=== PATIENT | male | born 1970 | race Caucasian/White ===

== ENCOUNTER 2016-07-16 20:42 | Emergency (ER) | payer OTHER ==
[~2016-07-16] VITALS: Ht 188 cm; Wt 123.0 kg
[2016-07-16 21:12] LABS: HEMATOCRIT 40.6 % (38.0-50.0); MCH 28.3 PG (29.0-34.0); MCHC 35.5 G/DL (30.0-36.0); MCV 79.9 FL (86-99); MEAN PLAT.VOLUME 10.6 uM^3 (9.0-12.4); PLATELET COUNT 240 K/uL (156-360); RBC DIS.WIDTH-CV 12.9 % (11.8-14.6); RBC DIS.WIDTH-SD 37.2 % (39-53); RED BLOOD COUNT 5.08 M/uL (4.00-5.50); WHITE BLOOD COUNT 16.8 K/uL (4.1-10.2)
[2016-07-16 21:31] LABS: CHLORIDE 105 mEq/L (99-109); POTASSIUM 4.4 mEq/L (3.7-5.4); SODIUM 138 mEq/L (136-147)
[2016-07-16 21:34] LABS: GLUCOSE 221 mg/dL (70-99)
[2016-07-16 21:35] LABS: ANION GAP 13 MEQ/L (2-14)
[2016-07-16 21:36] LABS: TOTAL BILIRUBIN 0.6 mg/dL (0.0-1.0)
[2016-07-16 21:37] LABS: ALKALINE PHOSPHATASE 54 IU/L (3-129)
[2016-07-16 21:38] LABS: UREA NITROGEN (BUN) 26 mg/dL (9-23)
[2016-07-16 21:44] LABS: GFR ESTIMATE (CALCULATED) 44 mL/min/
[2016-07-16 23:13] LABS: LIPASE 31 U/L (1.0-51.0)
[2016-07-16 23:27] LABS: ADD MIUA? YES; BILIRUBIN NEGATIVE; BLOOD MODERATE; COLOR YELLOW ((YELLOW)); GLUCOSE (STRIP) 50; KETONES 5; LEUKOCYTES NEGATIVE; NITRITE NEGATIVE; PROTEIN (STRIP) 100; SPECIFIC GRAVITY 1.027 (1.000-1.030); UROBILINOGEN 0.2 MG/DL (0.2-1.0)
[2016-07-16 23:39] LABS: BACTERIA NONE SEEN /HPF; EPITHELIAL CELLS NONE SEEN /HPF; HYALINE CASTS 0-5 /LPF; MUCUS TRACE /LPF; RED BLOOD CELLS 0-5 /HPF (0-5); UCUL ADDED? NO; WHITE BLOOD CELLS 0-5 /HPF (0-5)
[2016-07-17] MEDS ORDERED: FLOMAX0.4 MG PO (00:40)
[2016-07-17] MEDS ORDERED: NORCO 7.5/321 TABLET PO (00:40)
[2016-07-17] MEDS ORDERED: MOTRIN800 MG PO (00:40)
[2016-07-17] MEDS ORDERED: ZOFRAN ODT4 MG PO (00:40)
[2016-07-17 00:57] VITALS: BP 139/63
== END 2016-07-17 01:09 | disposition home or self-care (01) ==
LOC: EME 20:42
DX: N13.2 Hydronephrosis with renal and ureteral calculous obstruction (principal); E11.65 Type 2 diabetes mellitus with hyperglycemia; N28.9 Disorder of kidney and ureter, unspecified
CPT/HCPCS: 74176; 80053; 81003; 83690; 85027; 87086; 99281; 99285; J1885; J3010

== ENCOUNTER 2017-11-04 17:36 | Inpatient (IN) | payer OTHER ==
[~2017-11-04] VITALS: Ht 190.5 cm; Wt 118.1 kg
[2017-11-04] VITALS (7 sets, daily range): BP systolic 129–186; BP diastolic 61–114
[~2017-11-04 17:36] MED LIST: FLOMAX0.4 MG PO; MOTRIN800 MG PO; NORCO 7.5/321 TABLET PO; ZOFRAN ODT4 MG PO
[2017-11-04 17:49] LABS: BASOPHIL COUNT 0.1 K/uL (0-0.1); EOSINOPHIL (%) 4.5 % (0-5); EOSINOPHIL COUNT 0.5 K/uL (0-0.3); HEMATOCRIT 40.1 % (38.0-50.0); HEMOGLOBIN 14.1 G/DL (12.5-16.6); IMMATURE GRANULOCYTE (%) 1.3 % (0.0-0.7); LYMPHOCYTE (%) 25.3 % (15-42); MCHC 35.2 G/DL (30.0-36.0); MCV 82.3 FL (86-99); MONOCYTE (%) 6.7 % (3-12); MONOCYTE COUNT 0.8 K/uL (0-0.8); NEUTROPHIL (%) 61.2 % (45-76); NEUTROPHIL COUNT 7.3 K/uL (1.8-6.4); PLATELET COUNT 219 K/uL (156-360); RBC DIS.WIDTH-CV 13.2 % (11.8-14.6); RBC DIS.WIDTH-SD 39.5 % (39-53); RED BLOOD COUNT 4.87 M/uL (4.00-5.50); WHITE BLOOD COUNT 11.9 K/uL (4.1-10.2)
[2017-11-04 18:14] LABS: AMYLASE 60 IU/L (1-118); CHLORIDE 105 mEq/L (99-109)
[2017-11-04 18:15] LABS: POTASSIUM 3.7 mEq/L (3.7-5.4); SODIUM 140 mEq/L (136-147)
[2017-11-04 18:16] LABS: GLUCOSE 134 mg/dL (70-99)
[2017-11-04 18:19] LABS: SERUM ETHYL ALCOHOL < 10 mg/dL
[2017-11-04 18:20] LABS: CREATININE 1.4 mg/dL (0.6-1.3); GFR ESTIMATE (CALCULATED) 58 mL/min/ (58.99-99999)
[2017-11-04 18:21] LABS: UREA NITROGEN (BUN) 20 mg/dL (9-23)
[2017-11-04 18:23] LABS: LIPASE 50 U/L (1.0-51.0)
[2017-11-04] MEDS ORDERED: PRAVASTATIN SOD40 MG PO (18:30)
[2017-11-04] MEDS ORDERED: ADVIL200 MG PO (18:30)
[2017-11-04] MEDS ORDERED: LISINOPRIL5 MG PO (18:31)
[2017-11-04] MEDS ORDERED: METFORMIN HCL1000 MG PO (18:31)
[2017-11-04 19:46] LABS: PTT 25.2 SEC (25-37)
[2017-11-04 19:54] LABS: TROP-I INTERPRETATION NEGATIVE; TROPONIN-I < 0.01 ng/mL (0.0-0.30)
[2017-11-04 21:01] LABS: APPEARANCE CLEAR ((CLEAR)); BILIRUBIN NEGATIVE; BLOOD NEGATIVE; COLOR STRAW ((YELLOW)); GLUCOSE (STRIP) NEGATIVE; KETONES NEGATIVE; LEUKOCYTES NEGATIVE; NITRITE NEGATIVE; PROTEIN (STRIP) 30; SPECIFIC GRAVITY 1.023 (1.000-1.030); UCUL ADDED? NO; UROBILINOGEN 0.2 MG/DL (0.2-1.0)
[2017-11-04 21:34] LABS: AMPHETAMINE NEGATIVE (500 ng/mL); BARBITURATES NEGATIVE (200 ng/mL); BENZODIAZEPINES NEGATIVE (150 ng/mL); BUPRENORPHINE NEGATIVE (10 ng/mL); COCAINE NEGATIVE (150 ng/mL); METHADONE NEGATIVE (200 ng/mL); METHAMPHETAMINE NEGATIVE (500 ng/mL); OPIATES (MORPHINE) NEGATIVE (100 ng/mL); OXYCODONE NEGATIVE (100 ng/mL); PHENCYCLIDINE NEGATIVE (25 ng/mL); PROPOXYPHENE NEGATIVE (300 ng/mL); THC CANNABINOIDS NEGATIVE (50 ng/mL); TRICYCLIC ANTIDEPRESSANTS NEGATIVE (300 ng/mL)
[2017-11-04 23:27] LABS: HDL CHOLESTEROL 26 MG/DL (Desirable>=40); LDL CHOLESTEROL 85 mg/dL (Desirable<100); NON-HDL CHOLESTEROL 116 mg/dL (Desirable<160); TOTAL CHOLESTEROL 142 mg/dL (Desirable<200); TRIGLYCERIDES 157 MG/DL (Normal: <150)
[2017-11-05] VITALS (25 sets, daily range): BP systolic 123–167; BP diastolic 60–96
[2017-11-05 05:14] LABS: HEMATOCRIT 36.5 % (38.0-50.0); HEMOGLOBIN 12.8 G/DL (12.5-16.6); MCH 28.7 PG (29.0-34.0); MCHC 35.1 G/DL (30.0-36.0); MCV 81.8 FL (86-99); PLATELET COUNT 203 K/uL (156-360); RBC DIS.WIDTH-CV 13.2 % (11.8-14.6); RBC DIS.WIDTH-SD 39.1 % (39-53); RED BLOOD COUNT 4.46 M/uL (4.00-5.50); WHITE BLOOD COUNT 10.8 K/uL (4.1-10.2)
[2017-11-05 05:40] LABS: CHLORIDE 105 MEQ/L (99-109); CREATININE 1.2 MG/DL (0.6-1.3); GFR ESTIMATE (CALCULATED) > 59 mL/min/ (58.99-99999); GLUCOSE 182 mg/dL (70-99); SODIUM 138 MEQ/L (136-147); UREA NITROGEN (BUN) 16 mg/dL (9-23)
[2017-11-05 10:44] LABS: HEMOGLOBIN A1c (GLYCOHEMOGLOB) 7.1 % (Below 5.7)
[2017-11-06] VITALS (8 sets, daily range): BP systolic 108–163; BP diastolic 70–84
[2017-11-07 00:24] VITALS: BP 134/66
[2017-11-07 03:59] VITALS: BP 139/81
[2017-11-07 04:00] VITALS: BP 120/65
[2017-11-07 07:11] VITALS: BP 136/75
[2017-11-07] MEDS ORDERED: LOPRESSOR25 MG PO (10:44)
[2017-11-07] MEDS ORDERED: ASPIRIN EC325 MG PO (10:45)
[2017-11-07] MEDS ORDERED: ATORVASTATIN CA40 MG PO (10:50)
[2017-11-08 05:30] LABS: LUPA PHOSPHOLIPID NEUTRALIZ Positive (Negative)
[2017-11-11 15:35] LABS: ACTIVATED PROTEIN C RESIST+ 4.6 ratio (>=2.1); DRVVT Mixing Study Interp Positive (()); FACTOR VIII ACTIVITY+ 226 % (50-180); PROTEIN C FUNCTIONAL ACTIVITY+ 192 % (70-180); PTT-LA 44 sec (<=40); Protein S, Free 98 % normal (57-171); Thrombosis Consult Level Limited (()); dRVVT Screen 78 sec (<=45)
[2017-11-11 19:06] LABS: ANTITHROMBIN III ACTIVITY+ 121 % activi (80-120)
== END 2017-11-07 12:22 | disposition home or self-care (01) | DRG 63 ==
LOC: EME 17:36 → EDOF 20:07 → 4WEST 20:07 → ENRESERV 20:09 → 4WEST 21:24 → ENRESERV 11-06 08:22 → CANRESERV 11-06 08:22 → ENRESERV 11-06 08:30 → 5SOUTH 11-06 10:45
PROVIDERS: Emergency Medicine; Hospitalist; Specialist; Surgery
DX: I63.512 Cerebral infarction due to unspecified occlusion or stenosis of left middle cerebral artery (principal); R47.01 Aphasia; R47.02 Dysphasia; R20.0 Anesthesia of skin; E11.65 Type 2 diabetes mellitus with hyperglycemia; N28.9 Disorder of kidney and ureter, unspecified; I10 Essential (primary) hypertension; E78.5 Hyperlipidemia, unspecified; Z86.73 Personal history of transient ischemic attack (TIA), and cerebral infarction without residual deficits
CPT/HCPCS: 70450; 70496; 70498; 70551; 80048; 80061; 81003; 81240 90; 82150; 82948; 83036; 83090 90; 83690; 84484; 85025; 85027; 85240 90; 85300 90; 85303 90; 85305 90; 85306 90; 85307 90; 85610; 85613 90; 85651; 85730; 85730 90; 86038; 86146 90; 86147 90; 86850; 86900; 86901; 87641; 92507 GN; 92523 GN; 92610 GN; 93005; 97530 GO; 99281; 99285; G0480; J1815; J2997